=== PATIENT | female | born 1965 | race Caucasian/White ===

== ENCOUNTER 2020-01-25 15:32 | Emergency (ER) | payer MEDICARE, MEDICAID, SELFPAY ==
--- NOTE | ~2020-01-25 | XR_ITS ---
EXAMINATION: XR chest 2V DATE: 01/25/2020 18:16 INDICATION: Heart attack with epigastric pain and abnormal EKG TECHNIQUE: PA and lateral views of the chest were obtained. COMPARISON: Chest radiograph dated 05/27/2016 FINDINGS: The lungs remain clear with no focal airspace opacities, pulmonary edema, pleural effusion or pneumot horax. The cardiomediastinal silhouette is normal. Bones are unremarkable. Excreted contrast at the k idneys and bilateral renal collecting systems related to the contrast enhanced CT performed less than one hour prior. IMPRESSION: 1. No acute cardiopulmonary disease. Reviewed, dictated and finalized at location A. [facility]
--- NOTE | ~2020-01-25 | CT_ITS ---
EXAMINATION: CT abdomen pelvis w con DATE: 01/25/2020 17:43 INDICATION: Right upper quadrant abdominal pain and epigastric pain. TECHNIQUE: Computed tomography (CT) of the abdomen and pelvis was performed with 100 mL Omnipaque-350 intravenous contrast. Automated exposure control and iterative reconstruction technique were employe d. The dose-length product was 277.73 mGy-cm. COMPARISON: 05/27/2016 FINDINGS: There are few unchanged 4 mm or smaller noncalcified granuloma in the bilateral lower lobes. Mild bib asilar atelectasis. Heart size is normal. No pericardial or pleural effusion. Small sliding-type hiat al hernia. Diffuse hepatic steatosis. Gallbladder, spleen, pancreas, bilateral adrenal glands and kid neys are normal. Bowels including the appendix are normal. Bladder is normal. The uterus is not ident ified and has likely been surgically resected. No free intraperitoneal gas or fluid. No pathologicall y enlarged abdominal or pelvic lymphadenopathy. Chronic L5 spondylolysis with bilateral pars interart icularis defects and grade 1 anterolisthesis of L5 on S1. IMPRESSION: 1. No acute intra-abdominal/pelvic process. 2. Small sliding-type hiatal hernia. 3. Diffuse hepatic steatosis. 4. Chronic L5 spondylolysis with grade 1 anterolisthesis of L5 on S1. Reviewed, dictated and finalized at location A. R RECEIVER
[2020-01-25 15:37] VITALS: BP 169/118; PULSE 98; RESP 20; TEMP 36.4; O2SAT 95
--- NOTE | 2020-01-25 15:45 | ECG_ITS ---
Measurements Intervals [place] Rate: 103 P: 66 IL: 124 QRS: 90 QRSD: 74 T: 73 QT: 340 QTc: 447 Interpretive Statements SINUS TACHYCARDIA BORDERLINE ECG Electronically Signed On 01-25-2020 17:48:38 [employer]AM SEALER by Maycol Vargas D.O.
--- NOTE | 2020-01-25 15:57 | ED.GENADULT ---
HPI - General Adult General Chief complaint: Unspecified Stated complaint: possible EKG changes Time Seen by Provider: 01/25/20 15:41 Source: patient Mode of arrival: ambulatory Limitations: no limitations History of Present Illness HPI narrative: The pt is a 54 y/o female who presents to the ED for evaluation of an abnormal EKG done today. Pt states that for the past two days, she has had palpitations and intermittent chest tightness that has been more constant today. Pt states that when she got an EKG, she was recommended to come to the ED due to changes on her EKG. Pt reports productive cough, fatigue, lower ABD pain onset 2 weeks ago, and chills and diaphoresis that began 6-8 months ago. Pt also reports chronic hoarseness. Pt notes that she had teeth extracted a few days ago. complaint: Abnormal EKG Location: chest and abdomen Associated symptoms: cough (Productive), diaphoresis (Onset 6-8 months ago), fever/chills (Onset 6-8 months ago) and other (Palpitations (Onset two days ago), chest tightness (Intermittent, Onset two days ago), fatigue, lower ABD pain, hoarseness (Chronic)) Treatments prior to arrival: none Related Data Allergies Allergy/AdvReac Type Severity Reaction Status Date / Time morphine Allergy Mild itchy Verified 01/25/20 15:45 Penicillins Allergy Unknown RASH Verified 01/25/20 15:45 1 ALL METALS [QUETA] Allergy Unknown Other Uncoded 01/25/20 15:45 Review of Systems Review of Systems: All systems reviewed & are unremarkable except as noted in HPI and below Constitutional: Constitutional: Reports chills (Onset 6-8 months ago), Reports excessive sweating (Onset 6-8 months ago) and Reports fatigue ENT: Reports hoarseness (Chronic) Cardiovascular: Cardiovascular: Reports palpitations (Palpitations onset two days ago) and Reports other (Chest tightness (Onset two days ago)) Respiratory: Respiratory: Reports cough (Productive) Gastrointestinal: Gastrointestinal: Reports abdominal pain (Lower, onset 2 weeks ago) [facility] Past Medical History Medical History (Updated 01/25/20 @ 18:27 by Yousuf Dominguez MD) Abnormal uterine bleeding ADHD Anxiety Arrhythmia Asthma Bipolar disorder Breast tumor Chronic migraine COPD (chronic obstructive pulmonary disease) Depression GERD (gastroesophageal reflux disease) Hypothyroidism Lupus (systemic lupus erythematosus) PTSD (post-traumatic stress disorder) Seizure Tumor Abdominal Surgical History Surgical History (Updated 01/25/20 @ 16:33 by Dimitrios Abarca) H/O laparoscopy H/O total hysterectomy H/O tubal ligation Status post right breast lumpectomy Social History Social History (Updated 01/25/20 @ 16:33 by Dimitrios Abarca) Smoking status: Current every day smoker Comments PCP: Dr. Schmidt Exam Narrative: Exam Narrative: GENERAL: Well-appearing, well-nourished, and in no acute distress. HEAD: Normocephalic, atraumatic. ENT: Mucous membranes moist. CHEST: Clear to auscultation. No respiratory distress. HEART: Regular rate and rhythm. Normal peripheral pulses. ABDOMEN: Soft, mild epigastric tenderness without guarding, nondistended, normal active bowel sounds. EXTREMITIES: Normal range of motion. No edema. NEURO: No focal deficits. Alert and oriented x3. PSYCH: Normal mood and affect. Course Course Emergency Course: Informed of results. No pain at this time. D/c. Vital Signs Vital signs: Vital Signs Temperature 97.5 F L 01/25/20 15:37 Pulse Rate 98 01/25/20 15:37 Respiratory Rate 20 01/25/20 15:37 Blood Pressure 169/118 H 01/25/20 15:37 Pulse Oximetry 95 01/25/20 15:37 Temperature 97.5 F L 01/25/20 15:37 Pulse Rate 95 01/25/20 18:01 Respiratory Rate 20 01/25/20 18:01 Blood Pressure 162/97 H 01/25/20 18:01 Pulse Oximetry 98 01/25/20 18:01 Medical Decision Making Vital Signs Vital Signs: Vital Signs Temperature 97.5 F L 01/25/20 15:37 Pulse Rate 98 01/25/20 15:37 Respiratory Rate 20
[2020-01-25] MEDS: LIDOCAINE HCL 2% VISC SOLN 15 ML UDC 20 ML PO (16:15)
[2020-01-25] MEDS: MAG HYDROX/AL HYDROX/SIMETH 30 ML UDC PO (16:15)
[2020-01-25] MEDS: ONDANSETRON INJ 4 MG/2 ML VIAL IV PUSH (16:22)
[2020-01-25 17:02] LABS: Basophils Percent Auto 0.4 % (0.2-1.2); Eosinophils Absolute Auto 0.1 K/mm3 (0-0.3); Eosinophils Percent Auto 1.2 % (0-4.4); Hematocrit 46.8 % (37.0-47.0); Hemoglobin 15.1 g/dL (12.0-15.0); Immature Granulocyte Absolute 0.01 K/mm3 (0.00-0.031); Immature Granulocyte Percent A 0.2 % (0-0.5); Lymphocytes Absolute Auto 1.26 K/mm3 (0.9-3.2); Lymphocytes Percent Auto 25.7 % (18.3-44.2); Mean Corpuscular HGB Conc 32.3 g/dl (32-36); Mean Corpuscular Hemoglobin 27.1 pg (26-34); Mean Corpuscular Volume 83.9 fl (80-100); Mean Platelet Volume 10.5 fl (7.4-10.4); Monocytes Absolute Auto 0.3 K/mm3 (0.1-0.6); Monocytes Percent Auto 6.5 % (2.6-8.5); Neutrophils Absolute Auto 3.2 K/mm3 (1.3-6.7); Platelet Count Result 266 k/mm3 (150-375); Red Blood Count 5.58 M/mm3 (4.2-5.4); Red Cell Distribution Width 13.7 % (11.5-14.5); White Blood Count 4.9 K/mm3 (4.5-10.0)
[2020-01-25 17:13] LABS: Lactic Acid Reflex 2.4 mmol/L (0.7-2.1)
[2020-01-25 17:14] LABS: Alanine Aminotransferase 43 U/L (4-35); Albumin Level 4.5 g/dL (3.5-5.1); Alkaline Phosphatase 78 U/L (38-126); Aspartate Amino Transferase 40 U/L (14-36); Bilirubin,Total 0.5 mg/dL (0.2-1.3); Blood Urea Nitrogen 17 mg/dL (7-17); Calcium 9.7 mg/dL (8.4-10.2); Carbon Dioxide 30 mmol/L (22-30); Chloride 102 mmol/L (98-107); Estimated CRCL calculation 75 ml/min; Estimated Glomerular Filt Rate > 60; Glucose 125 mg/dL (65-105); Lipase 41 U/L (23-300); Potassium 3.6 mmol/L (3.4-5.0); Sodium 141 mmol/L (137-145)
[2020-01-25 17:25] LABS: Troponin I < 0.012 ng/mL (0.000-0.034)
[2020-01-25] MEDS: SODIUM CHLORIDE 0.9% IV 1,000 ML 999 ML IV CONT (17:29)
[2020-01-25 17:48] LABS: INR 0.9; Partial Thromboplastin Time 36.5 SECONDS (22.3-36.8); Prothrombin Time 12.2 Seconds (11.1-14.7)
[2020-01-25 18:01] VITALS: BP 162/97; PULSE 95; RESP 20; O2SAT 98
[2020-01-25 18:21] LABS: Free T4 Free Thyroxine Reflex 1.03 ng/dL (0.78-2.19)
[2020-01-25 18:47] VITALS: BP 149/92; PULSE 98; RESP 19; O2SAT 97
[2020-01-25 19:00] LABS: Total Triiodothyronine (T3) 1.43 NG/ML (0.97-1.69)
[2020-01-25 19:59] LABS: Reflex Lactic Acid Yes or No Add Lactic
== END 2020-01-25 19:03 | disposition home or self-care (01) ==
PROVIDERS: Emergency Provider Emergency Medicine; PCP Emergency Medicine
DX: R10.13 Epigastric pain (principal); J44.9 Chronic obstructive pulmonary disease, unspecified; K21.9 Gastro-esophageal reflux disease without esophagitis; E03.9 Hypothyroidism, unspecified; M32.9 Systemic lupus erythematosus, unspecified; R00.0 Tachycardia, unspecified
CPT/HCPCS: 36415; 71046; 74177; 80053; 83605; 83690; 84439; 84443; 84480; 84484; 85025; 85610; 85730; 93005; 96361; 96374; 99284; A9270; J2405; J7030; Q9967

== ENCOUNTER 2020-04-25 14:46 | Emergency (ER) | payer MEDICARE, MEDICAID, SELFPAY ==
[2020-04-25 14:56] VITALS: BP 176/102; PULSE 98; RESP 18; TEMP 36.6; O2SAT 100
--- NOTE | 2020-04-25 15:06 | ED.SKABFB ---
HPI - Skin/Abscess/Foreign Bdy General Chief complaint: Skin/Abscess/Foreign Body Stated complaint: boils under left arm Time Seen by Provider: 04/25/20 14:59 Source: patient and RN notes reviewed Mode of arrival: ambulatory Limitations: no limitations History of Present Illness HPI narrative: Patient presents today complaining of severely painful abscesses to the left axilla x3 to 4 days. Symptoms began after patient shaved. States she did use a new razor and has no symptoms in the right axilla. States that this is the third episode of similar symptoms in the past year. Denies any active drainage. No history of hidradenitis or MRSA. She has been using topical lidocaine gel with some relief. MD complaint: abscess/boil Related Data Home Medications Medication Instructions Recorded Confirmed amlodipine 04/25/20 clonazepam 04/25/20 levothyroxine 04/25/20 methylphenidate HCl 04/25/20 montelukast mg 04/25/20 omeprazole 04/25/20 pravastatin 04/25/20 Allergies Allergy/AdvReac Type Severity Reaction Status Date / Time morphine Allergy Mild itchy Verified 01/25/20 15:45 1 ALL METALS [QUETA] Allergy Unknown Other Uncoded 01/25/20 15:45 Review of Systems Review of Systems: Narrative: CONSTITUTIONAL: Denies body aches, fever, chills, or sweats. EYES: Denies visual changes, redness, or discharge. ENT: Denies rhinorrhea, congestion, sore throat, or otalgia. CARDIOVASCULAR: Denies chest pain, palpitations, or edema. RESPIRATORY: Denies cough or dyspnea. GASTROINTESTINAL: Denies abdominal pain, nausea, vomiting, or diarrhea. GENITOURINARY: Denies dysuria or hematuria. SKIN: Denies rash, itching, or wounds. Painful lesions to left axilla MUSCULOSKELETAL: Denies back pain, joint pain, or myalgia. NEUROLOGIC: Denies headache, numbness, tingling, or weakness. PSYCH: Denies depression or anxiety. [facility] Past Medical History Medical History (Updated 04/25/20 @ 15:09 by Terri Edwards, REINFORCER, ) Abnormal uterine bleeding ADHD Anxiety Arrhythmia Asthma Bipolar disorder Breast tumor Chronic migraine COPD (chronic obstructive pulmonary disease) Depression GERD (gastroesophageal reflux disease) Hypothyroidism Lupus (systemic lupus erythematosus) PTSD (post-traumatic stress disorder) Seizure Tumor Abdominal Surgical History Surgical History (Updated 01/25/20 @ 16:33 by Dimitrios Abarca) H/O laparoscopy H/O total hysterectomy H/O tubal ligation Status post right breast lumpectomy Social History Social History (Updated 01/25/20 @ 16:33 by Dimitrios Abarca) Smoking status: Current every day smoker Exam Narrative: Exam Narrative: GENERAL: Well-appearing, well-nourished, and in no acute distress. HEAD: Normocephalic, atraumatic. EYES: EOMI. No redness or drainage. Conjunctivae normal. ENT: Mucous membranes pink and moist. NECK: Normal AROM. CHEST: No respiratory distress. EXTREMITIES: Normal range of motion. No edema. SKIN: Warm, dry. Capillary refill normal. Normal skin turgor. +4 ~1cm erythematous nodules to the left axilla with induration. No fluctuance noted throughout. Pinpoint pustule in center. Patient withdrew to pain, even palpation of areas that were not erythematous. These areas are not ready to be lanced. NEURO: No focal deficits. Alert and oriented x3. Gait steady. PSYCH: Normal affect. No signs of depression or anxiety. Course Vital Signs Vital signs: Vital Signs Temperature 97.9 F 04/25/20 14:56 Pulse Rate 98 04/25/20 14:56 Respiratory Rate 18 04/25/20 14:56 Blood Pressure 176/102 H 04/25/20 14:56 Pulse Oximetry 100 04/25/20 14:56 Temperature 97.9 F 04/25/20 14:56 Pulse Rate 98 04/25/20 14:56 Respiratory Rate 18 04/25/20 14:56 Blood Pressure 176/102 H 04/25/20 14:56 Pulse Oximetry 100 04/25/20 14:56 Reviewed. Pt has been instructed to follow up with her PCP regarding her elevated blood pressure today. Patient has histor
== END 2020-04-25 15:11 | disposition home or self-care (01) ==
PROVIDERS: Emergency Provider Nurse Practitioner
DX: L03.112 Cellulitis of left axilla (principal); J44.9 Chronic obstructive pulmonary disease, unspecified; I10 Essential (primary) hypertension; K21.9 Gastro-esophageal reflux disease without esophagitis; E03.9 Hypothyroidism, unspecified; M32.9 Systemic lupus erythematosus, unspecified; F31.9 Bipolar disorder, unspecified; F90.9 Attention-deficit hyperactivity disorder, unspecified type; F41.9 Anxiety disorder, unspecified; F17.200 Nicotine dependence, unspecified, uncomplicated; F43.10 Post-traumatic stress disorder, unspecified
CPT/HCPCS: 99213; G0463

== ENCOUNTER 2020-06-30 09:29 | Emergency (ER) | payer MEDICARE, MEDICAID, SELFPAY ==
[2020-06-30] VITALS (7 sets, daily range): BP systolic 115–157; BP diastolic 73–98; PULSE 86–99; RESP 20–28; TEMP 37; O2SAT 91–97
--- NOTE | ~2020-06-30 | XR_ITS ---
EXAMINATION: XR abdomen/kub 1V INDICATION: Right flank pain TECHNIQUE: Supine views of the abdomen were obtained on 2 radiographs. COMPARISON: CT from today FINDINGS: The known 4 mm stone at the right bilateral nephrolithiasis seen on CT is also not apprecia emy. Ureterovesicular junction is not definitely identified. The bowel gas pattern is normal. The vis ualized lung bases demonstrate mild atelectasis. IMPRESSION: 1. Known urolithiasis not identified. Reviewed, dictated and finalized at location A.
--- NOTE | ~2020-06-30 | CT_ITS ---
EXAMINATION: CT abdomen pelvis wo con DATE: 06/30/2020 11:31 INDICATION: Right flank pain TECHNIQUE: Computed tomography (CT) of the abdomen and pelvis was performed without intravenous contr ast. The dose-length product (DLP) was 211.66 mGy-cm. Automated exposure control and iterative recons truction technique were employed. COMPARISON: 01/25/2020 FINDINGS: Minimal dependent atelectasis is present in the lung bases. The heart size is normal. There is a small sliding hiatal hernia. The liver is diffusely low in attenuation when compared with the s pleen, consistent with hepatic steatosis. The spleen, pancreas, gallbladder, and adrenal glands are n ormal. There is a 4 mm stone at the right ureterovesicular junction which causes mild right hydrouret eronephrosis. There are punctate nonobstructing stones of the right kidney. There is a 2 mm nonobstru cting stone of the left kidney. No pathologically enlarged abdominal or pelvic lymph nodes are identi fied. There is calcified atherosclerosis of the aorta and many of the other arteries. The appendix is normal. There are bilateral L5 pars defects with grade 1 anterolisthesis of L5 on S1. IMPRESSION: 1. 4 mm stone of the right ureterovesicular junction causing mild right hydroureteronephrosis. 2. Bilateral nephrolithiasis. Reviewed, dictated and finalized at location A. IMPRESSION: 1. 4 mm stone of the right ureterovesicular junction causing mild right hydrour eteronephrosis. 2. Bilateral nephrolithiasis.
[2020-06-30 10:24] LABS: Basophils Absolute Auto 0.1 K/mm3 (0.0-0.1); Basophils Percent Auto 0.6 % (0.2-1.2); Eosinophils Absolute Auto 0.2 K/mm3 (0-0.3); Eosinophils Percent Auto 2.7 % (0-4.4); Hematocrit 46.7 % (37.0-47.0); Immature Granulocyte Absolute 0.02 K/mm3 (0.00-0.031); Immature Granulocyte Percent A 0.3 % (0-0.5); Lymphocytes Absolute Auto 1.38 K/mm3 (0.9-3.2); Lymphocytes Percent Auto 17.8 % (18.3-44.2); Mean Corpuscular HGB Conc 32.1 g/dl (32-36); Mean Corpuscular Hemoglobin 26.8 pg (26-34); Mean Corpuscular Volume 83.4 fl (80-100); Mean Platelet Volume 10.7 fl (7.4-10.4); Monocytes Absolute Auto 0.5 K/mm3 (0.1-0.6); Monocytes Percent Auto 6.3 % (2.6-8.5); Neutrophils Absolute Auto 5.6 K/mm3 (1.3-6.7); Neutrophils Percent Auto 72.3 % (45.5-73.1); Platelet Count Result 295 k/mm3 (150-375); Red Cell Distribution Width 14.6 % (11.5-14.5); White Blood Count 7.8 K/mm3 (4.5-10.0)
--- NOTE | 2020-06-30 10:29 | ED.BACK ---
HPI - Back Pain/Injury General Chief Complaint: Back Pain/Injury Stated Complaint: back pain Time Seen by Provider: 06/30/20 10:09 Source: patient and family (daughter) Mode of arrival: ambulatory Limitations: no limitations and clinical condition (patient is in too much pain to give history) History of Present Illness HPI Narrative: This patient is a 55 year old female who presents for evaluation of right lower back pain x 3 days. Her daughter states patient 's pain has been intermittent. Yesterday her pain appeared to be resolved per her daughter because they were at the store and she was pushing her around. LAst night, patient called family and reported that her pain was so severe she couldn't move out of tub. It is unknown if patient has taken anything for pain. Her daughter also reports patient had hematuria MD elicited complaint: back pain Related Data Home Medications Medication Instructions Recorded Confirmed amlodipine 10 mg PO DAILY 04/25/20 04/25/20 clonazepam 2 mg PO DAILY 04/25/20 04/25/20 levothyroxine 50 mcg PO DAILY 04/25/20 04/25/20 methylphenidate HCl 20 mg PO DAILY 04/25/20 04/25/20 montelukast 10 mg PO DAILY 04/25/20 04/25/20 omeprazole 20 mg PO DAILY 04/25/20 04/25/20 pravastatin 20 mg PO DAILY 04/25/20 04/25/20 Allergies Allergy/AdvReac Type Severity Reaction Status Date / Time morphine Allergy Mild itchy Verified 06/30/20 11:07 1 ALL METALS [QUETA] Allergy Unknown Other Uncoded 01/25/20 15:45 Review of Systems Review of Systems: ROS unobtainable: Yes other (unable to get due to patient only screaming) [facility] Past Medical History Medical History (Updated 06/30/20 @ 15:30 by Cindy Otto MD) Abnormal uterine bleeding ADHD Anxiety Arrhythmia Asthma Bipolar disorder Breast tumor Chronic migraine COPD (chronic obstructive pulmonary disease) Depression GERD (gastroesophageal reflux disease) Hypothyroidism Lupus (systemic lupus erythematosus) PTSD (post-traumatic stress disorder) Seizure Tumor Abdominal Surgical History Surgical History (Updated 01/25/20 @ 16:33 by Dimitrios Abarca) H/O laparoscopy H/O total hysterectomy H/O tubal ligation Status post right breast lumpectomy Social History Social History (Updated 01/25/20 @ 16:33 by Dimitrios Abarca) Smoking status: Current every day smoker Exam Const: General: alert; No diaphoretic Orientation/consciousness: patient oriented x3 Other: restless in bed, HENMT: Head: normocephalic and atraumatic Eyes: EOM: EOMs intact bilaterally Chest: Chest palpation & inspection: normal inspection of the chest Resp: Effort & Inspection: normal respiratory effort Auscultation: clear to auscultation bilaterally Cardio: Rate: regular rate Rhythm: regular rhythm GI: GI Palp: Yes Soft to palpation and Yes Tenderness to palpation present (GI) (RUQ, RLQ) Back/Spine/Pelvis: Other: patient hold onto right lower back Neuro: General: patient oriented x3 and moves all extremities Psych: Affect: Anxious affect present Course Reevaluation(s) Reevaluation #1: PAtient reports her pain is not as bad. She is asking for medication for nausea. I have discussed with patient that she was found to have a kidney stone as the cause of her pain. Date: 06/30/20 Time: 14:04 Vital Signs Vital signs: Vital Signs Temperature 98.6 F 06/30/20 09:34 Pulse Rate 97 06/30/20 09:34 Respiratory Rate 28 H 06/30/20 09:34 Blood Pressure 145/98 H 06/30/20 09:34 Pulse Oximetry 97 06/30/20 09:34 Temperature 98.6 F 06/30/20 09:34 Pulse Rate 88 06/30/20 15:50 Respiratory Rate 20 06/30/20 15:50 Blood Pressure 120/87 06/30/20 15:50 Pulse Oximetry 91 06/30/20 15:50 MDM - Back Pain/Injury Lab Data Attestation: I reviewed the patient's lab results. Result diagrams: 06/30/20 10:15 06/30/20 10:15 Labs: Lab Results 06/30/20 06/30/20 06/30/20 Range/Units 10:15 10:15
[2020-06-30] MEDS: ONDANSETRON INJ 4 MG/2 ML VIAL IV PUSH ×2 (10:35→14:10)
[2020-06-30 10:37] LABS: Anion Gap 15.1 mmol/L (7-16); Blood Urea Nitrogen 23 mg/dL (7-17); Calcium 9.4 mg/dL (8.4-10.2); Carbon Dioxide 26 mmol/L (22-30); Chloride 103 mmol/L (98-107); Estimated CRCL calculation 47 ml/min; Estimated Glomerular Filt Rate > 60; Glucose 168 mg/dL (65-105); Potassium 4.1 mmol/L (3.4-5.0); Sodium 140 mmol/L (137-145)
[2020-06-30 13:16] LABS: Add Urine Microscopic? YES; Appearance Urine Clear (Clear); Bilirubin Urine Negative (Negative); Blood Urine 2+ (Negative); Color Urine Yellow (Yellow); Glucose Urine UA Negative (Negative); Ketones Urine Negative (Negative); Leukocyte Esterase Ur Negative LEU/UL (Negative); Mucus Urine Rare /lpf; Nitrate Urine Negative (Negative); Protein Urine 1+ mg/dL (Negative); RBC Urine 21-50 /hpf (0-2); Squamous Epithelial Cell Urine Occasional /hpf (Few); Urobilinogen Urine Negative mg/dL (<2.0)
[2020-06-30 13:17] LABS: Specific Grav Ur 1.033 (1.001-1.035)
[2020-06-30] MEDS: KETOROLAC 30 MG/ML VIAL (*BKC) IV PUSH (14:10)
[2020-06-30] MEDS: TAMSULOSIN HCL 0.4 MG CAPSULE PO (14:17)
[2020-06-30] MEDS: METOCLOPRAMIDE HCL INJ 10 MG/2 ML VIAL IV PUSH (15:13)
== END 2020-06-30 16:07 | disposition home or self-care (01) ==
PROVIDERS: Emergency Provider General Practice
DX: N13.2 Hydronephrosis with renal and ureteral calculous obstruction (principal); F90.9 Attention-deficit hyperactivity disorder, unspecified type; F41.9 Anxiety disorder, unspecified; F31.9 Bipolar disorder, unspecified; J44.9 Chronic obstructive pulmonary disease, unspecified; K21.9 Gastro-esophageal reflux disease without esophagitis; E03.9 Hypothyroidism, unspecified
CPT/HCPCS: 36415; 74018; 74176; 80048; 81001; 85025; 96365; 96375; 96376; 99284; A9270; J0131; J1170; J1885; J2405; J2765

== ENCOUNTER 2021-05-14 22:55 | Emergency (ER) | payer MEDICARE, MEDICAID, SELFPAY ==
--- NOTE | ~2021-05-14 | XR_ITS ---
XR finger 3rd RT min 2V DATE: 05/14/2021 23:23 INDICATION: Dog bite, laceration and pain at distal third digit TECHNIQUE: 4 views COMPARISON: None FINDINGS: There is evidence of a distal third digit soft tissue laceration. No radiopaque foreign bod y or subcutaneous emphysema. No apparent fracture or dislocation. IMPRESSION: Distal soft tissue laceration; no opaque foreign body or apparent fracture Reviewed, dictated and finalized at location A. IMPRESSION: Distal soft tissue laceration; no opaque foreign body or apparent f racture
[2021-05-14 23:01] VITALS: BP 164/112; PULSE 110; RESP 20; TEMP 36.7; O2SAT 99
[2021-05-14 23:03] VITALS: BP 170/113; PULSE 105; RESP 20; TEMP 36.4; O2SAT 100
[2021-05-14] MEDS: fentaNYL CITRATE INJ (*CRX) 100 MCG/2 ML VIAL 50 MCG IV PUSH (23:25)
[2021-05-14 23:34] VITALS: BP 167/102; PULSE 101; RESP 118; O2SAT 100
[2021-05-15 01:00] VITALS: BP 176/113; PULSE 110; RESP 18; O2SAT 100
--- NOTE | 2021-05-15 01:01 | ED.GENADULT ---
HPI - General Adult General Chief complaint: Extremity Injury, Upper Stated complaint: dog bite Time Seen by Provider: 05/14/21 22:55 History of Present Illness HPI narrative: Patient is a 55-year-old female who presents ER status post dog bite. Patient been caring for a stray dog that is a puppy for the last 2 days after it wandered into her yard. She had it chained up. Tonight it jumped and bit her in the stomach and the right middle finger. It is unknown if the dog is vaccinated. Patient has no new numbness or tingling. She reports pain to her stomach where she was bitten. Her tetanus shot is up-to-date. Related Data Home Medications Medication Instructions Recorded Confirmed amlodipine 10 mg PO DAILY 04/25/20 04/25/20 clonazepam 2 mg PO DAILY 04/25/20 04/25/20 levothyroxine 50 mcg PO DAILY 04/25/20 04/25/20 methylphenidate HCl 20 mg PO DAILY 04/25/20 04/25/20 montelukast 10 mg PO DAILY 04/25/20 04/25/20 omeprazole 20 mg PO DAILY 04/25/20 04/25/20 pravastatin 20 mg PO DAILY 04/25/20 04/25/20 Allergies Allergy/AdvReac Type Severity Reaction Status Date / Time morphine Allergy Mild itchy Verified 06/30/20 11:07 1 ALL METALS [QUETA] Allergy Unknown Other Uncoded 01/25/20 15:45 Review of Systems Review of Systems: All systems reviewed & are unremarkable except as noted in HPI and below Constitutional: Constitutional: Denies chills and Denies fever(s) Musculoskeletal: Comments: Right third digit pain. Integumentary/Breasts: Comments: Bite to abdomen and right third digit. Neurologic: Denies focal weakness and Denies numbness [facility] Past Medical History Medical History (Updated 05/15/21 @ 01:05 by Yousuf Dominguez MD) Abnormal uterine bleeding ADHD Anxiety Arrhythmia Asthma Bipolar disorder Breast tumor Chronic migraine COPD (chronic obstructive pulmonary disease) Depression GERD (gastroesophageal reflux disease) Hypothyroidism Lupus (systemic lupus erythematosus) PTSD (post-traumatic stress disorder) Seizure Tumor Abdominal Surgical History Surgical History (Updated 01/25/20 @ 16:33 by Dimitrios Abarca) H/O laparoscopy H/O total hysterectomy H/O tubal ligation Status post right breast lumpectomy Social History Social History (Updated 01/25/20 @ 16:33 by Dimitrios Abarca) Smoking status: Current every day smoker Exam Narrative: Exam Narrative: GENERAL: Uncomfortable-appearing, well-nourished, and anxious. HEAD: Normocephalic, atraumatic. ENT: Mucous membranes moist. CHEST: Clear to auscultation. No respiratory distress. HEART: Regular rate and rhythm. Normal peripheral pulses. EXTREMITIES: Focused exam the right hand reveals superficial cuts around the fingernail of the third digit with normal range of motion and sensation. SKIN: Warm, dry. Bite ríos to the abdomen infraumbilically. There are 3 small punctures noted. NEURO: Alert and oriented x3. PSYCH: Normal mood and affect. Course Course Emergency Course: Wounds cleaned. Discharge home with Augmentin. First dose here. Hue Simons contacted. She does not recommend giving rabies vaccination. Dog has been taken and by animal control. They will observe the dog for the next 10 days. Vital Signs Vital signs: Vital Signs Temperature 98.0 F 05/14/21 23:01 Pulse Rate 110 H 05/14/21 23:01 Respiratory Rate 20 05/14/21 23:01 Blood Pressure 164/112 H 05/14/21 23:01 Pulse Oximetry 99 05/14/21 23:01 Temperature 97.5 F L 05/14/21 23:03 Pulse Rate 101 H 05/14/21 23:34 Respiratory Rate 118 H 05/14/21 23:34 Blood Pressure 167/102 H 05/14/21 23:34 Pulse Oximetry 100 05/14/21 23:34 Medical Decision Making Vital Signs Vital Signs: Vital Signs Temperature 98.0 F 05/14/21 23:01 Pulse Rate 110 H 05/14/21 23:01 Respiratory Rate 20 05/14/21 23:01 Blood Pressure 164/112 H 05/14/21 23:01 Pulse Oximetry 99 05/14/21 23:01 Temperature 97.5 F L 05/14/21 23:03 Pulse Rate 1
[2021-05-15] MEDS: LORazepam INJ (*CRX) 2 MG/ML VIAL 0.5 MG IV PUSH (01:15)
[2021-05-15 01:30] VITALS: BP 142/87; PULSE 101; RESP 16; O2SAT 99
[2021-05-15] MEDS: AMOXICILLIN/CLAVULANATE K 875-125 MG TAB 1 TABLET PO (01:30)
== END 2021-05-15 01:40 | disposition home or self-care (01) ==
PROVIDERS: Emergency Provider Emergency Medicine
DX: S61.252A Open bite of right middle finger without damage to nail, initial encounter (principal); S30.871A Other superficial bite of abdominal wall, initial encounter; W54.0XXA Bitten by dog, initial encounter; F17.210 Nicotine dependence, cigarettes, uncomplicated; F90.9 Attention-deficit hyperactivity disorder, unspecified type; F41.9 Anxiety disorder, unspecified; J45.909 Unspecified asthma, uncomplicated; F31.9 Bipolar disorder, unspecified; K21.9 Gastro-esophageal reflux disease without esophagitis; E03.9 Hypothyroidism, unspecified
CPT/HCPCS: 73140; 96374; 96375; 99284; A9270; J2060; J3010

== ENCOUNTER 2023-04-01 09:50 | Emergency (ER) | payer MEDICARE, MEDICAID, SELFPAY ==
--- NOTE | 2023-04-01 10:02 | ED.GENADULT ---
HPI - General Adult General Chief complaint: Unspecified Stated complaint: Pain in ears, legs, and arms, n/v Time Seen by Provider: 04/01/23 10:42 Source: patient and RN notes reviewed Mode of arrival: ambulatory Limitations: no limitations History of Present Illness HPI narrative: 57-year-old female presents with concern for bilateral ear pain, body aches, nausea and vomiting. Reports symptoms started yesterday. Reports her granddaughter had similar symptoms. She denies diarrhea. She denies abdominal pain. Reports abdominal cramping. Patient is on 2 L nasal cannula at baseline, reports she has been on this since she had COVID 2 years ago. She denies any new cough, shortness of breath. MD complaint: Vomiting Related Data Home Medications Medication Instructions Recorded Confirmed amlodipine 10 mg tablet 10 mg PO DAILY 04/25/20 04/25/20 clonazepam 2 mg tablet 2 mg PO DAILY 04/25/20 04/25/20 methylphenidate HCl 20 mg tablet 20 mg PO DAILY 04/25/20 04/25/20 omeprazole 20 mg capsule,delayed 20 mg PO DAILY 04/25/20 04/25/20 release Oxygen 04/01/23 famotidine 20 mg tablet mg 04/01/23 Allergies Allergy/AdvReac Type Severity Reaction Status Date / Time morphine Allergy Mild itchy Verified 04/01/23 09:59 Penicillins Allergy Hives Verified 04/01/23 10:30 1 ALL METALS [QUETA] Allergy Unknown Other Uncoded 04/01/23 09:59 Review of Systems Review of Systems: CONSTITUTIONAL: Reports malaise, fever. EYES: Denies visual changes, redness, or discharge. ENT: Denies rhinorrhea, congestion, sinus pain, or sore throat. Reports ear pain CARDIOVASCULAR: Denies chest pain, palpitations, or edema. RESPIRATORY: Denies cough or dyspnea. GASTROINTESTINAL: Denies abdominal pain, diarrhea, bloody, or mucous stools. Reports nausea and vomiting, abdominal cramping GENITOURINARY: Denies dysuria or hematuria. SKIN: Denies rash or itching. MUSCULOSKELETAL: Reports myalgia. NEUROLOGIC: Denies headache. All systems reviewed & are unremarkable except as noted in HPI and below PMFSH Past Medical History Medical History (Updated 04/01/23 @ 10:50 by Mariaa Otto NP) Abnormal uterine bleeding ADHD Anxiety Arrhythmia Asthma Bipolar disorder Breast tumor Chronic migraine COPD (chronic obstructive pulmonary disease) Depression GERD (gastroesophageal reflux disease) Hypothyroidism Lupus (systemic lupus erythematosus) PTSD (post-traumatic stress disorder) Seizure Tumor Abdominal Surgical History Surgical History (Updated 01/25/20 @ 16:33 by Dimitrios Abarca) H/O laparoscopy H/O total hysterectomy H/O tubal ligation Status post right breast lumpectomy Social History Social History (Updated 01/25/20 @ 16:33 by Dimitrios Abarca) Smoking status: Current every day smoker Comments At time of signature, agree with nursing past medical, surgical, social and family history. There is no relevant family history pertinent to the presenting complaint Exam Narrative: GENERAL: Nontoxic-appearing and in no acute distress. HEAD: Normocephalic, atraumatic. EYES: PERRLA, sclera clear, and EOMI. No nystagmus. ENT: Nares clear, turbinates pink, no rhinorrhea or epistaxis. Mucous membranes moist. TM erythematous and bulging bilaterally; no tragal tenderness. Oropharynx without erythema or lesions. Tonsils not enlarged and without exudate. NECK: Supple. No lymphadenopathy. CHEST: No respiratory distress. Clear to auscultation. No bony deformities, no asymmetry. Speaks in full sentences. HEART: Regular rate and rhythm. No murmur heard. Normal peripheral pulses. ABDOMEN: Soft, nontender, nondistended, normal active bowel sounds, no palpable masses. EXTREMITIES: Normal range of motion. No edema. Normal strength and sensation. SKIN: Warm, dry, no visible rash. NEURO: Alert and oriented x3. PSYCH: Normal mood and affect Course Course Emergency Course: Patient is aware of diagnosis, understands and agrees to treatment pl
[2023-04-01 10:03] VITALS: BP 156/106; PULSE 143; RESP 16; TEMP 38.7; O2SAT 97
[2023-04-01] MEDS: ONDANSETRON HCL ODT 4 MG TABLET PO (10:13)
[2023-04-01] MEDS: ACETAMINOPHEN 325 MG TABLET 650 MG PO (10:21)
== END 2023-04-01 11:08 | disposition home or self-care (01) ==
PROVIDERS: Emergency Provider Nurse Practitioner
DX: H66.003 Acute suppurative otitis media without spontaneous rupture of ear drum, bilateral (principal); R11.10 Vomiting, unspecified; E03.9 Hypothyroidism, unspecified; F17.200 Nicotine dependence, unspecified, uncomplicated; Z99.81 Dependence on supplemental oxygen; Z20.822 Contact with and (suspected) exposure to COVID-19
CPT/HCPCS: 87081; 87426; 87804; 87880; 99213; A9270; C9803; G0463

== ENCOUNTER 2024-07-16 18:52 | Emergency (ER) | payer MEDICARE, MEDICAID, SELFPAY ==
[2024-07-16 19:00] VITALS: BP 163/98; PULSE 89; RESP 16; TEMP 36.5; O2SAT 100
--- NOTE | 2024-07-16 20:05 | ED.EAR ---
HPI - Ear Problem General Chief complaint: Ear Stated complaint: left ear issue Time Seen by Provider: 07/16/24 20:05 Source: patient, RN notes reviewed and old records reviewed Mode of arrival: ambulatory Limitations: no limitations History of Present Illness HPI Narrative: 59-year-old female presents to the [facility] with complaints of left ear discomfort, states that she feels a popping sensation in her reports that it feels like things are draining from her ear Patient also reports sinus issues for 2 weeks No treatment prior to arrival Duration: constant Related Data Home Medications Medication Instructions Recorded Confirmed amlodipine 10 mg tablet 10 mg PO DAILY 04/25/20 07/16/24 clonazepam 2 mg tablet 2 mg PO DAILY 04/25/20 07/16/24 methylphenidate HCl 20 mg tablet 20 mg PO DAILY 04/25/20 07/16/24 omeprazole 20 mg capsule,delayed 20 mg PO DAILY 04/25/20 07/16/24 release Oxygen 04/01/23 famotidine 20 mg tablet 20 mg PO DAILY 04/01/23 07/16/24 Allergies Allergy/AdvReac Type Severity Reaction Status Date / Time morphine Allergy Mild itchy Verified 07/16/24 18:55 Penicillins Allergy Hives Verified 07/16/24 18:55 1 ALL METALS [QUETA] Allergy Unknown Other Uncoded 07/16/24 18:55 Review of Systems Review of Systems: All systems reviewed & are unremarkable except as noted in HPI and below Constitutional: Constitutional: Reports no additional constitutional complaints Eyes: Eyes: Reports no additional eye complaints ENT: Reports as per HPI, Reports otalgia, Reports nasal congestion and Reports nasal discharge Cardiovascular: Cardiovascular: Reports no additional cardiovascular complaints, Denies chest pain and Denies dyspnea Respiratory: Respiratory: Reports as per HPI, Denies chest congestion, Reports cough and Denies dyspnea Gastrointestinal: Gastrointestinal: Reports no additional gastrointestinal complaints, Denies abdominal pain, Denies nausea and Denies vomiting Musculoskeletal: Musculoskeletal: Reports no additional musculoskeletal complaints Integumentary/Breasts: Skin/Breast: Reports system reviewed and no additional complaints, except as docu Neurologic: Reports system reviewed and no additional complaints, except as documented Psychiatric: Psychiatric: Reports no additional psychiatric complaints Allergic/Immunologic: Allergic/Immunologic: Reports no additional allergic/immunologic complaints PMFSH Past Medical History Medical History Abnormal uterine bleeding ADHD Anxiety Arrhythmia Asthma Bipolar disorder Breast tumor Chronic migraine COPD (chronic obstructive pulmonary disease) Depression GERD (gastroesophageal reflux disease) Hypothyroidism Lupus (systemic lupus erythematosus) PTSD (post-traumatic stress disorder) Seizure Tumor Abdominal Surgical History Surgical History H/O laparoscopy H/O total hysterectomy H/O tubal ligation Status post right breast lumpectomy Social History Social History Smoking status: Current every day smoker Comments At the time of my signature, I reviewed and agree with the nursing past medical, surgical, social, and family history. There is no relevant family history pertinent to the patient complaint. Exam Const: General: cooperative, comfortable, no acute distress, well developed, alert, ill appearing chronically and well nourished Nutritional Appearance: well nourished Orientation/consciousness: patient oriented x3 Limitations: no limitations HENMT: Head: normal to inspection Ears: hearing grossly normal bilaterally, external ears normal, EAC's normal, mastoids normal, no periauricular adenopathy and TM abnormal with fluid behind the TM bilateral; not bulging and not erythematous Face/Nose/Sinus: Normal external nose present, Normal nares present, Normal nasal mucous m
== END 2024-07-16 20:15 | disposition home or self-care (01) ==
PROVIDERS: Emergency Provider Nurse Practitioner
DX: J40 Bronchitis, not specified as acute or chronic (principal); J01.40 Acute pansinusitis, unspecified; F17.200 Nicotine dependence, unspecified, uncomplicated; J44.9 Chronic obstructive pulmonary disease, unspecified; K21.9 Gastro-esophageal reflux disease without esophagitis; E03.9 Hypothyroidism, unspecified; M32.9 Systemic lupus erythematosus, unspecified; F90.9 Attention-deficit hyperactivity disorder, unspecified type; F41.9 Anxiety disorder, unspecified; F32.A Depression, unspecified
CPT/HCPCS: 99213; G0463

== ENCOUNTER 2024-11-23 11:38 | Emergency (ER) | payer MEDICARE, MEDICAID, SELFPAY ==
--- NOTE | ~2024-11-23 | XR_ITS ---
EXAMINATION: XR chest 2V DATE: 11/23/2024 13:17 INDICATION: Productive cough and congestion TECHNIQUE: PA and lateral views of the chest were obtained. COMPARISON: Chest radiograph dated 01/25/2020 FINDINGS: The lungs remain clear with no focal airspace opacities, pulmonary edema, pleural effusion or pneumot horax. The cardiomediastinal silhouette is normal. Visualized bones and soft tissues are unremarkable . IMPRESSION: 1. No acute cardiopulmonary disease. Reviewed, dictated and finalized at location A. AL EVISCERATOR
[2024-11-23 11:48] VITALS: BP 154/122; PULSE 126; RESP 20; TEMP 36.6; O2SAT 93
--- NOTE | 2024-11-23 12:42 | ED.URI ---
HPI - URI/Sore Throat General Chief Complaint: Upper Respiratory Infection Stated Complaint: Cough/Fever/SOB Time Seen by Provider: 11/23/24 12:43 Source: patient, RN notes reviewed and old records reviewed Mode of arrival: ambulatory Limitations: no limitations History of Present Illness HPI Narrative: Patient on home O2 at baseline presents with complaints of cough for approximately 10 days. She reports that cough is intermittently productive. She reports being more tired than usual. Has been taking multiple [id number] medications for her symptoms with moderate relief. She reports wheezing. She denies any shortness of breath Related Data Home Medications ?Medication ?Instructions ?Recorded ?Confirmed ?Last Taken ?Type amlodipine 10 mg tablet 10 mg PO DAILY 04/25/20 11/23/24 Unknown History clonazepam 2 mg tablet 2 mg PO DAILY 04/25/20 11/23/24 Unknown History methylphenidate HCl 20 mg tablet 20 mg PO DAILY 04/25/20 11/23/24 Unknown History omeprazole 20 mg capsule,delayed 20 mg PO DAILY 04/25/20 11/23/24 Unknown History release Oxygen 04/01/23 Unknown History famotidine 20 mg tablet 20 mg PO DAILY 04/01/23 11/23/24 Unknown History Allergies Allergy/AdvReac Type Severity Reaction Status Date / Time morphine Allergy Mild itchy Verified 11/23/24 12:28 Penicillins Allergy Hives Verified 11/23/24 12:28 1 ALL METALS [QUETA] Allergy Unknown Other Uncoded 11/23/24 12:28 Review of Systems Review of Systems: All systems reviewed & are unremarkable except as noted in HPI and below Constitutional: Constitutional: Reports no additional constitutional complaints and Reports lethargy ENT: Reports system reviewed and no additional complaints, except as documented and Reports nasal congestion Cardiovascular: Cardiovascular: Reports no additional cardiovascular complaints Respiratory: Respiratory: Reports no additional respiratory complaints, Reports chest congestion, Reports cough and Reports wheezing Gastrointestinal: Gastrointestinal: Reports no additional gastrointestinal complaints PMFSH Past Medical History Medical History Tumor Abdominal Breast tumor ADHD PTSD (post-traumatic stress disorder) Anxiety Depression Bipolar disorder Lupus (systemic lupus erythematosus) Hypothyroidism Abnormal uterine bleeding GERD (gastroesophageal reflux disease) Asthma COPD (chronic obstructive pulmonary disease) Arrhythmia Chronic migraine Seizure Surgical History Surgical History Status post right breast lumpectomy H/O laparoscopy H/O total hysterectomy H/O tubal ligation Social History Social History Smoking status: Current every day smoker Comments At the time of my signature, I reviewed and agree with the nursing past medical, surgical, social, and family history. There is no relevant family history pertinent to the patient complaint. Exam Const: General: cooperative, no acute distress, alert and awake Orientation/consciousness: oriented to person, oriented to place and oriented to time HENMT: Head: normal to inspection Mouth: Yes moist mucous membranes Resp: Effort & Inspection: normal respiratory effort and able to speak in complete sentences Auscultation: clear to auscultation bilaterally, no crackles, no rales, no rhonchi, no wheezes and diminished lung sounds Cardio: Palpation: normal PMI Rate: regular rate Rhythm: regular rhythm Heart sounds: S1 normal heart sound present and S2 normal heart sound present Neuro: General: oriented to person, oriented to place and oriented to time Cranial nerves: Yes CN's II-XII intact bilaterally Psych: Appearance: grossly normal Thought process: Normal thought process present Insight: Good insight present (Psych) Judgement: Good judgement present (Psych) Course Course Level of Care: Express Care Visit Vital Signs Vital signs: Vital Signs Temperature 97.8 F 11/23/24 11:48 Pulse Rate 126 H 11/23/24 11:48 Respiratory Rate 20 11/23/24 11:48 Blood Pressure 154/122 H 11/23/24 11:48 Pulse Oximetry 93 11/23/24 11:48 Oxygen Delivery Nasal Cannula 11/23/24 11:48 Oxygen Flow Rate 3 11/23/24 11:48 Temperature 97.8 F 11/23/24 11:48 Pulse Rate 126 H 11/23/24 11:48 Respiratory Rate 20 11/23/24 11:48 Blood Pressure 154/122 H 11/23/24 11:48 Pulse Oximetry 93 11/23/24 11:48 Oxygen Delivery Nasal Cannula 11/23/24 11:48 Oxygen Flow Rate 3 11/23/24 11:48 Reviewed MDM - URI/Sore Throat MDM Narrative Medical decision making narrative: Oxygen-dependent patient doing much better after steroids and neb treatment. Negative flu, negative COVID. Vital signs have improved dramatically. Patient nontoxic appearing and stable for discharge home. COPD exacerbation. Continue prednisone and bronchodilators, added azithromycin for added anti-inflammatory affect. Discharge instructions reviewed with patient, as well as provided in writing per nursing staff. The instructions also include specific and strict return/GO TO THE ER as well as f/u information. All questions have been answered, and the patient deny any further questions with discharge and discharge plan. Some parts of this dictation were generated by voice recognition software and may contain typographical and/or grammatical inaccuracies. Differential Diagnosis Differential diagnosis: Likely upper respiratory infection, otitis media, sinusitis, bronchitis, influenza and pharyngitis Medical Records Attestation: I reviewed the patient's medical records. Lab Data Attestation: I reviewed the patient's lab results. Labs: Lab Results 11/23/24 Range/Units 13:22 POC Influenza A Ag Negative (Negative) POC Influenza B Ag Negative (Negative) POC SARS CoV-2 Ag Negative (Negative) Imaging Data Attestation: I personally reviewed and interpreted this imaging study as follows: My impression: No acute findings Radiologist's impression: [facility] [address] [place] [address] XRay Report Signed Patient: Gogo Talbot : 1965 MR#: [id number] Age: 59 Acct:[id number] Loc: [facility] ADM Date: 11/23/24Attending Dr: Ordering Physician: Екатерина Diallo FNP Date of Service: 11/23/24 Procedure(s): XR chest 2V Accession Number(s): [id number] cc: Екатерина Diallo FNP; WILL CALL CLERK PHYSICIAN~ EXAMINATION: XR chest 2V DATE: 11/23/2024 13:17 INDICATION: Productive cough and congestion TECHNIQUE: PA and lateral views of the chest were obtained. COMPARISON: Chest radiograph dated 01/25/2020 FINDINGS: The lungs remain clear with no focal airspace opacities, pulmonary edema, pleural effusion or pneumothorax. The cardiomediastinal silhouette is normal. Visualized bones and soft tissues are unremarkable. IMPRESSION: 1. No acute cardiopulmonary disease. Reviewed, dictated and finalized at location A. COATING MACHINE OPERATOR Dictated By: Hernan Silver MD 11/23/24 1324 Signed By: <Electronically signed by Hernan Silver MD in OV> 11/23/24 1325 Discharge Plan Discharge Clinical Impression: COPD exacerbation Patient Disposition: Home, Self-Care Condition: Stable Instructions: Antibiotic Form, COPD (Chronic Obstructive Pulmonary Disease) (ED) Additional Instructions: Take medications as prescribed. Follow with primary care provider. Emergency department for new or worse symptoms Patient Language: Georgian Prescriptions: New azithromycin 250 mg tablet See Rx Instructions .ROUTE .COMPLEX Qty: 6 0RF Rx Instructions: For 250 mg dose pack: take 500 mg today (day 1), then 250 mg for 4 days (days 2-5) prednisone 50 mg tablet 50 mg PO DAILY Qty: 5 0RF albuterol sulfate [Ventolin HFA] 90 mcg/actuation HFA aerosol inhaler 2 puff inhalation QID PRN (Reason: shortness of breath or wheezing) Qty: 8.5 0RF albuterol sulfate 2.5 mg /3 mL (0.083 %) solution for nebulization 2.5 mg inhalation Q4H PRN (Reason: shortness of breath or wheezing) Qty: 180 0RF prednisone 50 mg tablet 50 mg PO DAILY Qty: 4 0RF No Action methylphenidate HCl 20 mg tablet 20 mg PO DAILY amlodipine 10 mg tablet 10 mg PO DAILY clonazepam 2 mg tablet 2 mg PO DAILY omeprazole 20 mg capsule,delayed release(DR/EC) 20 mg PO DAILY famotidine 20 mg tablet 20 mg PO DAILY Oxygen MDD 3 l/NC sitting/5 l/NC walking ondansetron 4 mg tablet,disintegrating 4 mg PO Q8H PRN (Reason: nausea and vomiting) Qty: 10 0RF Follow-up/Referrals: PHYSICIAN,WILL CALL CLERK [Primary Care Provider] - Time of Disposition: 13:46
[2024-11-23] MEDS: predniSONE 20 MG TABLET 60 MG PO (13:04)
[2024-11-23] MEDS: IPRATROPIUM 0.5 MG/ALBUTEROL SULFATE 2.5 MG AMPUL.NEB 3 ML INHALATION (13:05)
[2024-11-23 13:25] LABS: EDCOVIDSCREEN Negative (Negative); EDINFLUASCREEN Negative (Negative); EDINFLUBSCREEN Negative (Negative)
[2024-11-23 13:50] VITALS: PULSE 118; O2SAT 100
== END 2024-11-23 13:57 | disposition home or self-care (01) ==
PROVIDERS: Emergency Provider Nurse Practitioner Family
DX: J44.1 Chronic obstructive pulmonary disease with (acute) exacerbation (principal); Z20.822 Contact with and (suspected) exposure to COVID-19; Z99.81 Dependence on supplemental oxygen; M32.9 Systemic lupus erythematosus, unspecified; E03.9 Hypothyroidism, unspecified; K21.9 Gastro-esophageal reflux disease without esophagitis; F41.9 Anxiety disorder, unspecified; F90.9 Attention-deficit hyperactivity disorder, unspecified type
CPT/HCPCS: 71046; 87426; 87804; 99213; G0463; J7512

== ENCOUNTER 2025-11-13 23:23 | Emergency (ER) | payer MEDICARE, MEDICAID, SELFPAY ==
--- NOTE | ~2025-11-13 | XR_ITS ---
Examination: XR chest 1V portable Clinical History: Chest pain Comparison: 11/23/2024 Technique: Portable AP Findings: Heart size normal. Emphysema and scattered interstitial changes or scarring. No acute bony abnormality. IMPRESSION: 1. No acute cardiopulmonary findings given portable technique. Reviewed, dictated and finalized at location R. HEAD WEIGHER
--- NOTE | ~2025-11-13 | CT_ITS ---
CTA CHEST CLINICAL HISTORY: shortness of breath, tachycardia . COMPARISON: Chest x-ray hours prior TECHNIQUE: Helical CTA performed from thoracic inlet to upper abdomen 100 mL Omnipaque 350 Coronal, sagittal reformats. Multiplanar MIPS CT images acquired with automatic exposure control for dose reduction DLP: 189 mGy-cm FINDINGS: Pulmonary arteries: No PE. Thoracic Aorta: No dissection or aneurysm. Heart/pericardium: Coronary artery calcification. RV/LV ratio: Normal. Lungs/Pleura: Emphysema. Tracheobronchial tree: Foci bibasilar mucoid impaction. Nodes: No enlarged nodes. Bones: No acute bony abnormality. Soft tissues: Unremarkable. Visualized upper abdomen: Hiatal hernia. Diffuse esophageal wall thickening. Hepatomegaly, with steatosis. IMPRESSION: 1. No PE or other acute cardiopulmonary findings. 2. Esophageal wall thickening. Malignancy not excluded. Recommend endoscopy. 3. Emphysema. Recommend annual screening CT chest. Reviewed, dictated and finalized at location R. [employer]ER
--- OUTSIDE RECORDS SUMMARY | 2025-11-13 23:26 | XMS_ITS | Clinical Summary ---
Author Organization [facility] Address [address] [place] [address] Phone Care Team Providers Care Vice President And Portfolio Manager Name Role Phone Unavailable Primary Care Provider Unavailabl e Allergies Active Allergy Reactions Criticality Noted Date Comments Morphine Hives High 04/21/2024 Medications No known medications Social History Tobacco Use Types Packs/Day Years Used Date Smoking Tobacco: Never Assessed Feeling Safe Answer Date Recorded Are you in a relationship wi th someone who hurts you emotionally and/or physically? No 04/21/2024 Comments Unknown Sex and Gender Information Value Date Recorded Sex Assigned at Not on file Legal Sex Female 5:42 AM CDT Gender Identity Not on file Sexual Orientation Not on file Last Filed Vital Signs Vital Sign Reading Time Taken Comments Blood Pressure 198/106 04/21/2024 7:25 AM CDT Pulse 106 04/21/2024 7:20 AM CDT Temperature 36.7 C (98.1 F) 04/21/2024 5:43 AM CDT Respiratory Rate 24 04/21/2024 5:55 AM CDT Oxygen Saturation 95% 04/21/2024 7:20 AM CDT Inhaled Oxygen Concentration - - Weight 59 kg (130 lb) 04/21/2024 5:43 AM CDT Height 152.4 cm (5') 04/21/2024 5:43 AM CDT Body Mass Index 25.39 04/21/2024 5:43 AM CDT Plan of Treatment Health Maintenance Due Date Last Done Comments DTAP/TDAP/TD VACCINES (1 - Tdap) 1985 HEPATITIS B VACCINES (1 of 3 - 19+ 3-dose series) 1985 HPV/Cotest (21-29) 1987 CERVICAL CANCER SCREENING 1996 HPV/Cotest (30-65) 1996 PAP SMEAR 1996 COLORECTAL SCREENING 2011 Colorectal Cancer Screening 2011 FIT-DNA Q 3 years 2011 FIT/FOBT Q 1 year 2011 Flex Sig/CT Colonography Q 5 years 2011 ZOSTER VACCINE (1 of 2) 2016 BREAST CANCER SCREENING 07/12/2020 07/12/20 19, 07/12/2019, 09/09/2016, Additional history exists INFLUENZA VACCINE (#1) 2025 Insurance BC[employer] MEDICARE
--- NOTE | 2025-11-13 23:28 | ECG_ITS ---
Test Date: 2025-11-13 23:35:08 Measurements Intervals [place] Rate: 111 P: 71 [place]: 135 QRS: 86 QRSD: 81 T: 72 QT: 324 QTc: 441 Interpretive Statements SINUS TACHYCARDIA BASELINE ARTIFACT- I, II, III, AVR, AVL, AVF, V1-V6 ABNORMAL ECG No previous ECG available for comparison Electronically Signed On 11-14-2025 06:33:40 EPOXY SPECIALIST by Maycol Vargas D.O.
[2025-11-13 23:32] VITALS: BP 173/137; PULSE 111; RESP 26; TEMP 36.8; O2SAT 95
[2025-11-13] MEDS: ASPIRIN 81 MG CHEWABLE TABLET 324 MG PO (23:39)
[2025-11-13 23:45] VITALS: BP 176/112; PULSE 109; RESP 18; O2SAT 96
--- NOTE | 2025-11-13 23:57 | ED.CHESTPAIN ---
HPI - Chest Pain General Chief Complaint: Chest Pain Stated Complaint: chest pain Time Seen by Provider: 11/13/25 23:31 History of Present Illness HPI narrative: Patient is a 60-year-old female who presents to the ER with chest pain. She reports the chest pain started couple of weeks ago but has worsened over the last week. Patient reports she has never had chest pain this severe in the past. She endorses a history of 2 heart attacks, COPD, high blood pressure, and coronary artery disease. Patient also endorses a history of GERD and reports it feels a little bit like it. She denies any back pain, recent fevers, shortness of breath. Patient also reports she has had some hemoptysis over the past 2 days. She reports she does not currently have a primary care provider, but does have a GI specialist. Related Data Home Medications ?Medication ?Instructions ?Recorded ?Confirmed ?Last Taken ?Type amlodipine 10 mg tablet 10 mg PO DAILY 04/25/20 11/23/24 Unknown History clonazepam 2 mg tablet 2 mg PO DAILY 04/25/20 11/23/24 Unknown History methylphenidate HCl 20 mg tablet 20 mg PO DAILY 04/25/20 11/23/24 Unknown History omeprazole 20 mg capsule,delayed 20 mg PO DAILY 04/25/20 11/23/24 Unknown History release Oxygen 04/01/23 Unknown History famotidine 20 mg tablet 20 mg PO DAILY 04/01/23 11/23/24 Unknown History Allergies Allergy/AdvReac Type Severity Reaction Status Date / Time morphine Allergy Mild itchy Verified 11/13/25 23:36 Penicillins Allergy Hives Verified 11/13/25 23:36 1 ALL METALS [QUETA] Allergy Unknown Other Uncoded 11/23/24 12:28 Review of Systems Review of Systems: All systems reviewed & are unremarkable except as noted in HPI and below PMFSH Past Medical History Medical History Tumor Abdominal Breast tumor ADHD PTSD (post-traumatic stress disorder) Anxiety Depression Bipolar disorder Lupus (systemic lupus erythematosus) Hypothyroidism Abnormal uterine bleeding GERD (gastroesophageal reflux disease) Asthma COPD (chronic obstructive pulmonary disease) Arrhythmia Chronic migraine Seizure Surgical History Surgical History Status post right breast lumpectomy H/O laparoscopy H/O total hysterectomy H/O tubal ligation Social History Social History Smoking status: Current every day smoker Exam Narrative: GENERAL: Ill appearing, well-nourished, non-toxic, in acute distress due to pain. HEAD: Normocephalic, atraumatic. NECK: Supple. No adenopathy, no masses. RESPIRATORY: Airway patent, respirations labored. Clear to auscultation bilaterally, no rales, rhonchi, wheezing. CARDIOVASCULAR: Tachycardia without murmurs, rubs, or gallops. Peripheral pulses 2+ and equal bilaterally. ABDOMINAL: Soft, nontender, nondistended, no hepatosplenomegaly. Normoactive BS. MUSCULOSKELETAL: Moves all extremities. Strength/ROM intact without gross deformities. SKIN: Warm, dry, normal color. No rashes. NEURO: A&O X3. Speech clear. Cranial nerves II-XII intact. No ataxic movements. PSYCHIATRIC: Anxious Course Vital Signs Vital signs: Vital Signs Temperature 36.8 C 11/13/25 23:32 Pulse Rate 111 H 11/13/25 23:32 Respiratory Rate 26 H 11/13/25 23:32 Blood Pressure 173/137 H 11/13/25 23:32 Pulse Oximetry 95 11/13/25 23:32 Oxygen Delivery Room Air 11/13/25 23:32 Temperature 36.8 C 11/13/25 23:32 Pulse Rate 86 11/14/25 03:01 Respiratory Rate 16 11/14/25 03:01 Blood Pressure 147/87 H 11/14/25 03:01 Pulse Oximetry 99 11/14/25 03:01 Oxygen Delivery Room Air 11/14/25 03:15 Oxygen Flow Rate 3 11/14/25 01:15 [facility] Narrative Medical decision making narrative: Patient is a 60-year-old female who presents to the ER with chest pain. She reports the chest pain started couple of weeks ago but has worsened over the last week. Patient reports she has never had chest pain this severe in the past. She endorses a history of 2 heart attacks, COPD, high blood pressure, and coronary artery disease. Patient also endorses a history of GERD and reports it feels a little bit like it. She denies any back pain, recent fevers, shortness of breath. Patient also reports she has had some hemoptysis over the past 2 days. She reports she does not currently have a primary care provider. Labs Ordered: CBC, CMP, coags, D-dimer, TSH, troponin, proBNP, UA, UDS Imaging Ordered: Chest x-ray, chest CTA Medications Ordered: 1 L normal saline IV bolus, Dilaudid 0.5 mg IV, GI cocktail Results: Patient's CT scan indicates no pulmonary embolism. There is emphysematous changes noted. There is marked diffuse thickening noted of the esophageal wall. No evidence of thoracic aortic aneurysm or dissection. The heart contains coronary artery calcifications. Diagnosis: Atypical chest pain, urinary tract infection, abnormal thyroid levels, GERD, esophagitis Risks: HEART score: moderate risk HEART Score for Major Cardiac Events from [email or web address] on 11/14/2025 All calculations should be rechecked by clinician prior to use RESULT SUMMARY: 4 points Moderate Score (4-6 points) Risk of MACE of 12-16.6%. INPUTS: History ?> 1 = Moderately suspicious EKG ?> 0 = Normal Age ?> 1 = 45-64 Risk factors ?> 2 = >= risk factors or history of atherosclerotic disease Initial troponin ?> 0 = <Normal limit Consult: Cardiology, outpatient, Dr. Wright, GI (already established), PCP Patient Education/Shared MDM: Results of lab work and imaging shared with patient. Pt endorses improvement of symptoms following Dilaudid medication administration. Upon further discussion, pt believes her pain may be related to GERD. She will be given a GI cocktail to see if this helps relieve her pain. Pt reports she is already on two GERD medications. Pt reports she takes Methylphenidate to treat her ADD. She denies any other illicit drug use. Patient strongly advised to follow-up with her PCP, Gastroenterology, and Cardiology as soon as possible for further evaluation. She will be discharged home with a prescription for Macrobid. Pt may increase her dose of Pepcid to 40mg BID instead of 20mg BID. Strict return precautions provided. Patient verbalized understanding and is in agreement with plan. Vital signs stable at time of discharge. All questions answered. Differential Diagnosis Differential Diagnosis: Pulmonary embolism, pneumonia, illicit drug use, atypical chest pain, esophagitis Lab Data [facility] Lab Attestation statement: I personally reviewed the patient's lab results. 11/13/25 23:40 11/14/25 00:22 Labs: Lab Results 11/13/25 11/14/25 11/14/25 Range/Units 23:40 00:22 01:24 WBC 8.4 (4.5-10.0) K/mm3 RBC 6.80 H (4.2-5.4) M/mm3 Hgb 13.8 (12.0-15.0) g/dL Hct 47.8 H (37.0-47.0) % MCV 70.3 L (80-100) fl MCH 20.3 L (26-34) pg MCHC 28.9 L (32-36) g/dl RDW 22.2 H (11.5-14.5) % Plt Count 457 H D (150-375) k/mm3 MPV 10.1 (7.4-10.4) fl Immature Gran % (Auto) 2.8 H (0-0.5) % Neut % (Auto) 64.9 (45.5-73.1) % Lymph % (Auto) 20.1 (18.3-44.2) % [place] % (Auto) 9.8 H (2.6-8.5) % Eos % (Auto) 1.7 (0-4.4) % Baso % (Auto) 0.7 (0.2-1.2) % Lymph # (Auto) 1.68 (0.9-3.2) K/mm3 [place] # (Auto) 0.8 H (0.1-0.6) K/mm3 Eos # (Auto) 0.1 (0-0.3) K/mm3 Baso # (Auto) 0.1 (0.0-0.1) K/mm3 Abs Immat Gran (auto) 0.23 H (0.00-0.031) K/mm3 Absolute Neuts (auto) 5.4 (1.3-6.7) K/mm3 Absolute Nucleated RBC 0.000 (0.0-0.012) K/mm3 Band Neutrophils % Not Reportable Nucleated RBC % 0.0 (0.0-0.2) % Platelet Estimate Increased (Adequate) Ovalocytes 1+ Schistocytes None seen PT 12.6 (11.1-14.7) Seconds INR 0.9 APTT 28.2 (22.3-36.8) Seconds D-Dimer 1.72 H (<0.48) ug/mL Sodium 139 (137-145) mmol/L Potassium 4.2 (3.4-5.0) mmol/L Chloride 104 (98-107) mmol/L Carbon Dioxide 27 (22-30) mmol/L Anion Gap 8 (4-12) mmol/L BUN 21 H (7-17) mg/dL Creatinine 0.79 (0.7-1.0) mg/dL Estim Creat Clear Calc 48 ml/min Estimated GFR > 60 (59 - ) Glucose 110 (65-110) mg/dL Lactic Acid 2.0 (0.7-2.0) mmol/L Calcium 9.7 (8.4-10.2) mg/dL Total Bilirubin 0.5 (0.2-1.3) mg/dL AST 32 (14-36) U/L ALT 18 (6-35) U/L Alkaline Phosphatase 79 (38-126) U/L Troponin I < 0.012 (0.000-0.034) ng/mL NT-Pro-B Natriuret Pep < 20 (19.9-100) pg/mL Total Protein 7.9 (6.3-8.2) g/dL Albumin 4.2 (3.5-5.1) g/dL Lipase 68 (23-300) U/L TSH (Reflex) 7.350 H (0.465-4.68) uIU/mL Free T4 0.79 (0.78-2.19) ng/dL Total T3 1.17 (0.82-1.58) NG/ML Urine Color Yellow (Yellow) Urine Appearance Clear (Clear) Urine pH 6.0 (5.0-9.0) Ur Specific [place] > 1.045 H (1.001-1.035) Urine Protein Negative (Negative) mg/dL Urine Glucose (UA) Negative (Negative) mg/dL Urine Ketones Negative (Negative) mg/dL Ur Blood (Man) Negative (Negative) Urine Nitrate Negative (Negative) Urine Bilirubin Negative (Negative) Urine Urobilinogen 0.2 (<2.0) mg/dL Leukocyte Esterase Rfl 2+ H (Negative) DIAMOND/UL Urine RBC 0-2 (0-2) /hpf Urine WBC 21-50 H (0-3) /hpf Ur Squamous Epith Cells Occasional (Few) /hpf Urine Bacteria Rare /hpf Urine Casts 0-2 Urine Opiates Screen Positive A (Negative) Urine Methadone Screen Negative (Negative) Ur Barbiturates Screen Negative (Negative) Ur Phencyclidine Scrn Negative (Negative) Ur Amphetamine Screen Positive A (Negative) U Benzodiazepines Scrn Negative (Negative) Urine Cocaine Screen Negative (Negative) U Cannabinoids Screen Negative (Negative) 11/14/25 Range/Units 03:11 WBC (4.5-10.0) K/mm3 RBC (4.2-5.4) M/mm3 Hgb (12.0-15.0) g/dL Hct (37.0-47.0) % MCV (80-100) fl MCH (26-34) pg MCHC (32-36) g/dl RDW (11.5-14.5) % Plt Count (150-375) k/mm3 MPV (7.4-10.4) fl Immature Gran % (Auto) (0-0.5) % Neut % (Auto) (45.5-73.1) % Lymph % (Auto) (18.3-44.2) % [place] % (Auto) (2.6-8.5) % Eos % (Auto) (0-4.4) % Baso % (Auto) (0.2-1.2) % Lymph # (Auto) (0.9-3.2) K/mm3 [place] # (Auto) (0.1-0.6) K/mm3 Eos # (Auto) (0-0.3) K/mm3 Baso # (Auto) (0.0-0.1) K/mm3 Abs Immat Gran (auto) (0.00-0.031) K/mm3 Absolute Neuts (auto) (1.3-6.7) K/mm3 Absolute Nucleated RBC (0.0-0.012) K/mm3 Band Neutrophils % Nucleated RBC % (0.0-0.2) % Platelet Estimate (Adequate) Ovalocytes Schistocytes PT (11.1-14.7) Seconds INR APTT (22.3-36.8) Seconds D-Dimer (<0.48) ug/mL Sodium (137-145) mmol/L Potassium (3.4-5.0) mmol/L Chloride (98-107) mmol/L Carbon Dioxide (22-30) mmol/L Anion Gap (4-12) mmol/L BUN (7-17) mg/dL Creatinine (0.7-1.0) mg/dL Estim Creat Clear Calc ml/min Estimated GFR (59 - ) Glucose (65-110) mg/dL Lactic Acid (0.7-2.0) mmol/L Calcium (8.4-10.2) mg/dL Total Bilirubin (0.2-1.3) mg/dL AST (14-36) U/L ALT (6-35) U/L Alkaline Phosphatase (38-126) U/L Troponin I Pending (0.000-0.034) ng/mL NT-Pro-B Natriuret Pep (19.9-100) pg/mL Total Protein (6.3-8.2) g/dL Albumin (3.5-5.1) g/dL Lipase (23-300) U/L TSH (Reflex) (0.465-4.68) uIU/mL Free T4 (0.78-2.19) ng/dL Total T3 (0.82-1.58) NG/ML Urine Color (Yellow) Urine Appearance (Clear) Urine pH (5.0-9.0) Ur Specific [place] (1.001-1.035) Urine Protein (Negative) mg/dL Urine Glucose (UA) (Negative) mg/dL Urine Ketones (Negative) mg/dL Ur Blood (Man) (Negative) Urine Nitrate (Negative) Urine Bilirubin (Negative) Urine Urobilinogen (<2.0) mg/dL Leukocyte Esterase Rfl (Negative) DIAMOND/UL Urine RBC (0-2) /hpf Urine WBC (0-3) /hpf Ur Squamous Epith Cells (Few) /hpf Urine Bacteria /hpf Urine Casts Urine Opiates Screen (Negative) Urine Methadone Screen (Negative) Ur Barbiturates Screen (Negative) Ur Phencyclidine Scrn (Negative) Ur Amphetamine Screen (Negative) U Benzodiazepines Scrn (Negative) Urine Cocaine Screen (Negative) U Cannabinoids Screen (Negative) Imaging Data Attestation: I personally reviewed and interpreted this imaging study as follows: Radiologist's impression: Patient's CT scan indicates no pulmonary embolism. There is emphysematous changes noted. There is marked diffuse thickening noted of the esophageal wall. No evidence of thoracic aortic aneurysm or dissection. The heart contains coronary artery calcifications. Discharge Plan Discharge Clinical Impression: Atypical chest pain, Urinary tract infection, Abnormal thyroid stimulating hormone (TSH) level, Chest pain due to GERD, Esophagitis Patient Disposition: Home Condition: Stable Instructions: Antibiotic Form, Esophagitis (ED) Additional Instructions: Please return to the ER with any worsening symptoms. Follow-up with primary care provider, GI and Cardiology as soon as possible for further evaluation. Take all medications as prescribed, including regularly scheduled medications. You may increase your Pepcid 40mg to twice daily. Please complete your full dose of antibiotics to treat your UTI. Your thyroid levels were abnormal today, please follow up with primary care regarding these results. Although you just saw your GI physician, it may be a good idea to follow-up with them again for further evaluation and treatment. Patient Language: Guamanian Prescriptions: New nitrofurantoin monohyd/m-cryst [Macrobid] 100 mg capsule 100 mg PO Q12H 5 Days Qty: 10 0RF Rx Instructions: must administer with a meal/food famotidine [Pepcid] 40 mg tablet 40 mg PO BID Qty: 30 0RF No Action methylphenidate HCl 20 mg tablet 20 mg PO DAILY amlodipine 10 mg tablet 10 mg PO DAILY clonazepam 2 mg tablet 2 mg PO DAILY omeprazole 20 mg capsule,delayed release(DR/EC) 20 mg PO DAILY famotidine 20 mg tablet 20 mg PO DAILY Oxygen MDD 3 l/NC sitting/5 l/NC walking ondansetron 4 mg tablet,disintegrating 4 mg PO Q8H PRN (Reason: nausea and vomiting) Qty: 10 0RF azithromycin 250 mg tablet See Rx Instructions .ROUTE .COMPLEX Qty: 6 0RF Rx Instructions: For 250 mg dose pack: take 500 mg today (day 1), then 250 mg for 4 days (days 2-5) prednisone 50 mg tablet 50 mg PO DAILY Qty: 5 0RF albuterol sulfate [Ventolin HFA] 90 mcg/actuation HFA aerosol inhaler 2 puff inhalation QID PRN (Reason: shortness of breath or wheezing) Qty: 8.5 0RF albuterol sulfate 2.5 mg /3 mL (0.083 %) solution for nebulization 2.5 mg inhalation Q4H PRN (Reason: shortness of breath or wheezing) Qty: 180 0RF prednisone 50 mg tablet 50 mg PO DAILY Qty: 4 0RF Follow-up/Referrals: Anne Wright DO [Physician, Cardiology] PHYSICIAN,TRAFFIC ADMINISTRATOR [Primary Care Provider, Internal Medicine]
[2025-11-14] VITALS: BP 166/99; PULSE 100; RESP 22; O2SAT 98
[2025-11-14 00:07] LABS: INR 0.9; Prothrombin Time 12.6 Seconds (11.1-14.7)
[2025-11-14 00:08] LABS: Partial Thromboplastin Time 28.2 Seconds (22.3-36.8)
[2025-11-14 00:14] LABS: Hematocrit 47.8 % (37.0-47.0); Hemoglobin 13.8 g/dL (12.0-15.0); Immature Granulocyte Percent A 2.8 % (0-0.5); Lymphocytes Absolute Auto 1.68 K/mm3 (0.9-3.2); Mean Corpuscular HGB Conc 28.9 g/dl (32-36); Mean Corpuscular Hemoglobin 20.3 pg (26-34); Mean Corpuscular Volume 70.3 fl (80-100); Nucleated Red Blood Cells Absolute Auto 0.000 K/mm3 (0.0-0.012); Nucleated Red Blood Cells Perc 0.0 % (0.0-0.2); Platelet Count Result 457 k/mm3 (150-375); Red Blood Count 6.80 M/mm3 (4.2-5.4); White Blood Count 8.4 K/mm3 (4.5-10.0)
[2025-11-14 00:15] VITALS: BP 158/97; PULSE 98; RESP 18; O2SAT 96
[2025-11-14] MEDS: SODIUM CHLORIDE 0.9% IV 1,000 ML 999 ML IV CONT (00:22)
[2025-11-14] MEDS: HYDROmorphone HCL INJ (*CRX) 1 MG/ML SYR 0.5 MG IV PUSH (00:23)
[2025-11-14 00:24] LABS: Ovalocytes 1+; Schistocytes None Seen
[2025-11-14 00:42] LABS: Alanine Aminotransferase 18 U/L (6-35); Albumin Level 4.2 g/dL (3.5-5.1); Alkaline Phosphatase 79 U/L (38-126); Anion Gap 8 mmol/L (4-12); Aspartate Amino Transferase 32 U/L (14-36); Bilirubin,Total 0.5 mg/dL (0.2-1.3); Blood Urea Nitrogen 21 mg/dL (7-17); Calcium 9.7 mg/dL (8.4-10.2); Carbon Dioxide 27 mmol/L (22-30); Chloride 104 mmol/L (98-107); Estimated CRCL calculation 48 ml/min; Estimated Glomerular Filt Rate > 60; Glucose 110 mg/dL (65-110); Lipase 68 U/L (23-300); Potassium 4.2 mmol/L (3.4-5.0); Sodium 139 mmol/L (137-145); Total Protein 7.9 g/dL (6.3-8.2)
[2025-11-14 00:53] LABS: NT Pro B Type Natriuretic Pept < 20 pg/mL (19.9-100); Troponin I < 0.012 ng/mL (0.000-0.034)
[2025-11-14 01:12] LABS: Thyroid Stimulating Hormone Reflex 7.350 uIU/mL (0.465-4.68)
[2025-11-14 01:13] VITALS: BP 173/89; PULSE 95; RESP 15; O2SAT 90
[2025-11-14 01:15] VITALS: O2SAT 98
[2025-11-14 01:31] VITALS: BP 154/101; PULSE 92; RESP 16; O2SAT 99
[2025-11-14 01:36] LABS: Add Urine Microscopic? YES; Appearance Urine Clear (Clear); Glucose Urine UA Negative (Negative); Leukocyte Esterase Ur 2+ LEU/UL (Negative); Nitrate Urine Negative (Negative); Non Pathogenic Casts 0-2; Specific Grav Ur > 1.045 (1.001-1.035)
[2025-11-14 01:42] LABS: Free T4 Free Thyroxine Reflex 0.79 ng/dL (0.78-2.19)
[2025-11-14 01:52] LABS: Cannabinoid Screen Urine Negative (Negative)
[2025-11-14 02:23] LABS: Total Triiodothyronine (T3) 1.17 NG/ML (0.82-1.58)
[2025-11-14 03:01] VITALS: BP 147/87; PULSE 86; RESP 16; O2SAT 99
[2025-11-14] MEDS: BELLADONNA ALK/PHENOB ELIX 10 ML, MAG HYDROX/ALUMINUM HYD/SIMETH 30 ML, LIDOCAINE 2% VI... PO (03:07)
[2025-11-14] MEDS: NITROFURANTOIN MONOHYD MACROCR 100 MG CAP PO (03:08)
--- NOTE | 2025-11-14 03:22 | ECG_ITS ---
Test Date: 2025-11-14 03:11:54 Measurements Intervals [place] Rate: 86 P: 66 DE: 134 QRS: 84 QRSD: 75 T: 70 QT: 365 QTc: 439 Interpretive Statements SINUS RHYTHM NORMAL ECG Compared to ECG 11/13/2025 23:35:08 HEART RATE HAS DECREASED Electronically Signed On 11-14-2025 06:25:05 MANAGER THERAPY by Maycol Vargas D.O.
[2025-11-14 03:39] LABS: Troponin I < 0.012 ng/mL (0.000-0.034)
== END 2025-11-14 03:47 | disposition home or self-care (01) ==
PROVIDERS: Student in an Organized Health Care Education/Training Program; Emergency Provider Registered Nurse
DX: R07.89 Other chest pain (principal); N39.0 Urinary tract infection, site not specified; K21.00 Gastro-esophageal reflux disease with esophagitis, without bleeding; R94.6 Abnormal results of thyroid function studies; I25.2 Old myocardial infarction; I25.10 Atherosclerotic heart disease of native coronary artery without angina pectoris; I10 Essential (primary) hypertension; J44.9 Chronic obstructive pulmonary disease, unspecified; M32.9 Systemic lupus erythematosus, unspecified; E03.9 Hypothyroidism, unspecified; F43.10 Post-traumatic stress disorder, unspecified; F41.9 Anxiety disorder, unspecified; F31.9 Bipolar disorder, unspecified; F98.8 Other specified behavioral and emotional disorders with onset usually occurring in childhood and adolescence; F17.200 Nicotine dependence, unspecified, uncomplicated; Z90.710 Acquired absence of both cervix and uterus; Z79.899 Other long term (current) drug therapy; R00.0 Tachycardia, unspecified
CPT/HCPCS: 36415; 71045; 71275; 80053; 80307; 81001; 83605; 83690; 83880; 84439; 84443; 84480; 84484; 85025; 85380; 85610; 85730; 87086; 93005; 96361; 96374; 99284; A9270; J1171; J7030; Q9967